=== PATIENT | female | born 1980 | race Caucasian/White ===

== ENCOUNTER 2018-12-02 15:29 | Emergency (ER) | payer BC ==
[~2018-12-02] VITALS: Ht 167.6 cm; Wt 140.6 kg
[2018-12-02 15:35] VITALS: BP 161/90
--- NOTE | 2018-12-02 16:25 | RAD ---
Left shoulder, 3 views, 12/02/2017: HISTORY: Chronic left shoulder pain No fracture or dislocation is identified. No significant arthritic change is seen. IMPRESSION: No significant left shoulder abnormality is detected. Electronically signed by: Daniel Salas MD (12/02/2018 4:20 PM) [facility]
[2018-12-02] MEDS ORDERED: METH4TAB2 PO (16:45)
[2018-12-02] MEDS ORDERED: DICL50TA4 PO (16:45)
--- NOTE | 2018-12-02 16:45 | PHYS DOC ---
Past Medical History Past Medical History: Asthma, Unknown Past Surgical History: Cholecystectomy, , Other Additional Past Surgical Histo: ears bilaterallyx6(tubes/removal/etc) Alcohol Use: None Drug Use: None Adult General Chief Complaint Chief Complaint: SHOULDER INJURY HPI HPI Patient is a 38 year old female with history of asthma who presents today complaining of 8 out of 10 left shoulder pain that has been going on for 5-6 months. Patient denies any known injury. She states the pain is worse on range of motion. She describes the pain as sharp and throbbing. Patient denies the pain radiating to upper extremity. Denies any numbness or tingling to bilateral upper extremity. Review of Systems Review of Systems Constitutional: Denies fever or chills [] Musculoskeletal: Reports left shoulder pain Integument: Denies rash or skin lesions [] Neurologic: Denies headache, focal weakness or sensory changes [] All other systems were reviewed and found to be within normal limits, except as documented in this note. Allergies Allergies Allergies Coded Allergies Type Severity Reaction Last Updated Verified Penicillins Allergy Intermediate hives/rash 01/24/15 Yes Physical Exam Physical Exam Constitutional: Well developed, well nourished, no acute distress, non-toxic appearance. [] Skin: Warm, dry, no erythema, no rash. [] Back: No tenderness, no CVA tenderness. [] Extremities: Left shoulder with no obvious deformity. No tenderness on palpation of the shoulder. Full range of motion to the left shoulder. Adequate radial, medial, ulnar sensation to the left upper extremity. +2 left radial pulse. Cap refill less than 2 seconds the left fingers. Neurologic: Alert and oriented X 3, normal motor function, normal sensory function, no focal deficits noted. [] Psychologic: Affect normal, judgement normal, mood normal. [] EKG EKG [] Radiology/Procedures Radiology/Procedures []PROCEDURE: SHOULDER 2+V LEFT Left shoulder, 3 views, 12/02/2017: HISTORY: Chronic left shoulder pain No fracture or dislocation is identified. No significant arthritic change is seen. IMPRESSION: No significant left shoulder abnormality is detected. Electronically signed by: Daniel Salas MD (12/02/2018 4:20 PM) [facility] DICTATED and SIGNED BY: DANIEL SALAS MD DATE: 12/02/18 8724 Course & Med Decision Making Course & Med Decision Making Pertinent Labs and Imaging studies reviewed. (See chart for details) This is a 38-year-old female patient presented to the ED today with left shoulder pain 5-6 months, no known injury. Left shoulder x-rays interpreted by radiologist are negative for any acute findings. Discharged with diclofenac and Medrol dosepak. Follow-up with orthopedic doctor in 1-2 weeks. Ice elevation encouraged. Dragon Disclaimer Dragon Disclaimer This electronic medical record was generated, in whole or in part, using a voice recognition dictation system. Departure Departure Impression: Primary Impression: Left shoulder pain Disposition: HOME, SELF-CARE Condition: STABLE Referrals: YOEL TAN NP (PCP) DESTINY BULLARD MD Follow up in 1-2 weeks Patient Instructions: Shoulder Pain, [id number] Additional Instructions: You were evaluated in the emergency room for left shoulder pain, your left shoulder x-rays are negative for any acute findings. Ice elevate the extremity. Follow-up with orthopedic doctor in 1-2 weeks. Take the medications prescribed as ordered. Scripts Methylprednisolone (MEDROL) 4 Mg Tab.ds.pk 1 PKG PO UD, #1 PKG Prov: ANNA DIAZ FIRER GLOST KILN 12/02/18 Diclofenac Sodium (DICLOFENAC SODIUM) 50 Mg Tablet.dr 1 TAB PO BID, #20 TAB 0 Refills Prov: SHERRYMARYBETHANNA Hess APRN 12/02/18 Problem Qualifiers Primary Impression: Left shoulder pain Chronicity: acute Qualified Codes: M25.512 - Pain in left shoulder ANNA DIAZ FIRER GLOST KILN Dec 02, 2018 16:45
== END 2018-12-02 17:00 | disposition home or self-care (01) ==
LOC: ER 15:29
DX: M25.512 Pain in left shoulder (principal); J45.909 Unspecified asthma, uncomplicated; Z90.49 Acquired absence of other specified parts of digestive tract; Z98.890 Other specified postprocedural states; Z88.0 Allergy status to penicillin
CPT/HCPCS: 73030; 99283

== ENCOUNTER 2019-07-08 13:30 | Emergency (ER) | payer BC ==
[~2019-07-08] VITALS: Ht 167.6 cm; Wt 131.5 kg
[~2019-07-08 13:30] MED LIST: DICL50TA4 PO; METH4TAB2 PO
[2019-07-08 13:55] VITALS: BP 152/100
[2019-07-08] MEDS ORDERED: CLIN150C14 PO (14:54)
--- NOTE | 2019-07-08 14:55 | PHYS DOC ---
Past Medical History Past Medical History: Asthma, Depression, Hypertension Past Surgical History: Cholecystectomy, Additional Past Surgical Histo: ears bilaterallyx6(tubes/removal/etc) Alcohol Use: None Drug Use: None Adult General Chief Complaint Chief Complaint: ABSCESS HPI HPI Patient is a 38 year old female who presents to the ER with complaints of an open abscess to her RLQ of her abdomen that has been draining yellow pus for the last week. She states that the surrounding erythema has increased over the last few days. She denies any fever, weakness, body aches, or fatigue. Patient currently rates her pain a 8/10 on the pain scale, there are no alleviating factors the pain increases when the area is touched or pressure is applied to the area. She denies any history of Diabetes. ROS PT denies fever, cough, shortness of breath, wheezing, sore throat, body aches, fatigue, back pain, dysuria, or weakness. She denies any nausea, vomiting, diarrhea, or abdominal cramping. Her only complaint is the draining abscess in her RLQ. All other ROS is neg unless otherwise noted in HPI. Review of Systems Review of Systems See Above Allergies Allergies Allergies Coded Allergies Type Severity Reaction Last Updated Verified Penicillins Allergy Intermediate hives/rash 01/24/15 Yes Physical Exam Physical Exam See Above Constitutional: Well developed, well nourished, no acute distress, non-toxic appearance. [] HENT: Normocephalic, atraumatic, bilateral external ears normal, nose normal. [] Eyes: PERRLA, conjunctiva normal, no discharge. [] Neck: Normal range of motion, no stridor. [] Cardiovascular:Heart rate regular rhythm Lungs & Thorax: Bilateral breath sounds clear to auscultation, no retractions, no respiratory distress. [] Abdomen: soft, no masses, no pulsatile masses; tenderness at the abscess site, no rebound tenderness or guarding [] Skin: Warm, dry, no erythema, no rash; 1.5 cm diameter open area noted to RLQ of abdomen with purulent drainage noted, no odor, moderate surrounding erythema, no fluctuance, no warmth, no induration. Extremities: No tenderness, no cyanosis, no clubbing, ROM intact, no edema. [] Neurologic: Alert and oriented X 3, no focal deficits noted. [] Psychologic: Affect normal, judgement normal, mood normal. [] Current Patient Data Vital Signs Vital Signs Date Time Temp Pulse Resp B/P (MAP) Pulse Ox O2 Delivery O2 Flow Rate FiO2 07/08/19 13:55 98.6 77 16 152/100 (117) 95 Room Air 98.6 EKG EKG [] Radiology/Procedures Radiology/Procedures [] Course & Med Decision Making Course & Med Decision Making Pertinent Labs and Imaging studies reviewed. (See chart for details) DX: Cutaneous abscess of RLQ Prescription written for clindamycin. Pt was encouraged to take a probiotic or yogurt daily while taking clindamycin. Discussed risks of C-diff with this medication. Follow up with PCP for reevaluation of site in 2 days, return to the ER if sx worsen or you develop a fever. Patient verbalized an understanding of home care, medications, follow-up, and return to ED instructions and was in agreement with the plan of care. [] Dragon Disclaimer Dragon Disclaimer This electronic medical record was generated, in whole or in part, using a voice recognition dictation system. Departure Departure Impression: Primary Impression: Abdominal wall abscess Disposition: 01 HOME, SELF-CARE Condition: STABLE Referrals: NO PCP (PCP) Additional Instructions: FILL THE PRESCRIPTION AND USE DIRECTED. TAKE A PROBIOTIC OR EAT YOGURT DAILY WHILE TAKING THIS MEDICATION. TYLENOL OR IBUPROFEN NEEDED FOR PAIN. APPLY WARM MOIST PACKS TO AREA FOUR TIMES A DAY. FOLLOW UP WITH YOUR PRIMARY CARE DOCTOR FOR WOUND RECHECK IN 2 DAYS, RETURN TO THE ER IF SYMPTOMS WORSEN. Scripts Clindamycin Hcl (CLINDAMYCIN HCL) 150 Mg Capsule 450 MG PO TID for 7 Days, #63 CAP 0 Refills Prov: RON SOTO APRN 07/08/19 RON SOTO APRN Jul 08, 2019 14:55
== END 2019-07-08 15:13 | disposition home or self-care (01) ==
LOC: ER 13:30
DX: L02.211 Cutaneous abscess of abdominal wall (principal); I10 Essential (primary) hypertension; J45.909 Unspecified asthma, uncomplicated; Z88.0 Allergy status to penicillin
CPT/HCPCS: 99283